=== PATIENT | female | born 1960 | race Caucasian/White ===

== ENCOUNTER 2017-07-31 08:58 | Day surgery (SDC) | payer OTHER, SELFPAY ==
[2017-07-31] VITALS (7 sets, daily range): BP systolic 100–138; BP diastolic 63–91; PULSE 65–92; RESP 14–18; TEMP 36.1–36.7; O2SAT 96–98; BMI 32.1
--- NOTE | 2017-07-31 | PATH_ITS ---
[facility] Accession Number: [id number] . 01 Material submitted: . PART A: POLYP AT MID-ASCENDING COLON PART B: COLON POLYP AT 15 CM . 02 Diagnosis: A. Biopsy Polyp Mid Ascending Colon: Tubular adenoma. . B. Biopsy Colon Polyp at 15 cm: Polypoid tubular adenoma, apparently excised in the plane of section. MRV/08/01/2017 . 02 Electronically signed: . Stanislaw Hameed MD, Pathologist NPI- [id number] . 01 Gross description: . Received are two formalin-filled containers, both labeled with the patient's name: . A. In a container labeled polyp at mid ascending colon, the specimen consists of a 0.3 cm portion of tissue, entirely submitted in cassette A. B. In a container labeled colon polyp at 15 cm, the specimen consists of a 0.6 cm portion of tissue, which is bisected and totally submitted in cassette B. ([id number]) /FRR . 02 Pathologist provided ICD-10: D12.2 . 02 CPT . 453054, [id number] Performed at: 01 [facility] [address] [id number] MD Jono Ball MD Phone: [phone] Performed at: 02 [facility] [address] [place], [place] [id number] MD Zach Bell MD Phone: [phone]
[2017-07-31] MEDS: SODIUM CHLORIDE 0.9% 1,000 ML 100 ML IV (09:30)
--- NOTE | 2017-07-31 11:32 | PM.HP.1 ---
History of Present Illness Chief complaint: [id number] Narrative: Haily Kimball is a 57 year old female who presents today for screening colonoscopy. She denies any problems or symptoms related to the function of her GI tract. She denies any family history of colon cancer or polyps. She reports that she needs a colonoscopy as part of a health maintenance program. [facility] Surgical History History of bilateral salpingo-oophorectomy (BSO) Status post appendectomy Status post hernia repair Status post tubal ligation Family History Father CT (myocardial infarction), Onset Age: 60 Grandmother Stroke, Onset Age: 80 Mother Alzheimer's dementia, late onset, Onset Age: 72 Depression Sister Age: 67 Chronic mental illness Depression Social History household members: spouse Smoking Status: Former smoker Meds Home Medications Medication Instructions Recorded Confirmed Type Fish Oil (Fish Oil 500 MG Softgel) 1,000 mg PO BID #0 04/10/12 07/31/17 History ASPIRIN (Aspir-Low) 81 mg PO QDAY #0 10/03/12 07/31/17 History [PROBIOTICS] 1 dose PO BID #0 10/03/12 07/31/17 History levothyroxine [Synthroid] 100 mcg PO QAM 07/31/17 07/31/17 History Allergies Allergy/AdvReac Type Severity Reaction Status Date / Time SULFA (sulfonamide) Allergy Mild RASH Uncoded 07/17/17 14:13 Review of Systems Review of Systems All systems reviewed & are unremarkable except as noted in HPI and below Exam Vital Signs (past 8 hours): Vital Signs - 8 hr 07/31/17 09:42 Temperature 97.4 F L Pulse Rate 92 H Respiratory Rate 16 Blood Pressure 138/91 H Pulse Oximetry 96 Pulse Oximetry 96 Oxygen Delivery Method Room Air Narrative Exam Narrative: A very pleasant lady in no distress HEENT: Normocephalic and atraumatic, pupils equal round reactive to light accommodation with anicteric sclera Lungs: Clear bilaterally Heart: Regular rate and rhythm without murmur Abdomen: Soft, nontender, active bowel sounds Extremities: Warm and well perfused without edema Assessment & Plan Plan: Plan: Very pleasant and generally healthy 57-year-old lady who presents today for a screening colonoscopy. We discussed risks and benefits of the procedure and the patient expressed a desire to continue
[2017-07-31] MEDS: fentaNYL 250 MCG/5 ML INJ 350 MCG IV (12:08)
--- NOTE | 2017-07-31 12:08 | PM.OP.1 ---
Operative Date/Time/Diagnoses - Date of procedure: 07/31/17 Time of procedure: 12:08 Pre-op diagnosis: Screening colonoscopy Post-op diagnosis: same Procedure & Clinicians Procedure: Colonoscopy to the cecum with polypectomy x2 Same procedure as scheduled: Yes Indications: No prior colonoscopy Surgeon: Lynda Gotti Anesthesia Type: Sedation (Versed 15 mg; fentanyl 350 mcg) Operative Notes Findings: 1. Excellent prep 2. One 3 mm polyp in the mid ascending colon 3. One 1 cm pedunculated polyp at 15 cm from the anal verge 4. A single large perianal skin tag-approximately 2 cm-without evidence of hemorrhage 5. Left lower quadrant adhesions 6. Mild diverticulosis limited to the sigmoid region Closure Type: not applicable Specimen(s): other Implants & Drains: 1. Polyp at the mid ascending colon removed with cold forceps 2. Polyp at 15 cm removed with snare cautery Estimated Blood Loss (mL): 1 Procedure in detail: After obtaining informed consent, the patient was brought to the GI suite and placed in the left lateral decubitus position on the examination table. After placement of appropriate monitors, the patient was given incremental doses of Versed and Fentanyl until an appropriate level of sedation was achieved. A time out was held per SCOAP protocol. A digital rectal examination was performed and did not reveal any masses or obstructing lesions. The colonoscope was gently passed into the patient's anus and the entire colon navigated to the level of the cecum with moderate difficulty due to tight left lower quadrant adhesions and patient discomfort. Once in the cecum, the scope was withdrawn being sure to go before and beyond all mucosal folds and prominences and get an excellent examination. In the mid ascending colon, we noted a 2-3 m sessile polyp. This was removed with cold forceps and retained for pathology. We continued our examination and at 15 cm encountered a 1 to 1-1/2 cm pedunculated polyp. This was removed completely with snare and cautery and retained for pathology. Other findings are noted above. At the level of the rectal vault, the scope was retroflexed and the internal anal canal was examined. The scope was straightened and air aspirated from the colon. The instrument was removed from the patient's body and the procedure was concluded. Total sedation time 28 min Total withdrawal time 16 min The patient was allowed to awaken from sedation without difficulty and taken to the post-anesthesia care unit in good condition. Complications: none Condition: stable Disposition: PACU Plan for aftercare: 1. Discharge to home 2. We will contact you with pathology results 3. Plan for next colonoscopy in 3 years due to the large size of the distal polyp
[2017-07-31] MEDS: MIDAZOLAM 5 MG/5 ML VIAL 15 MG IV (12:09)
--- NOTE | 2017-07-31 12:55 | SUR.PHASEII ---
Call light within reach. Pt drowsy, juice provided.
== END 2017-07-31 14:37 | disposition home or self-care (01) ==
PROVIDERS: Family Provider Family Medicine; PCP Family Medicine; Visit Provider Surgery
PROC: 0DJD8ZZ Inspection of Lower Intestinal Tract, Via Natural or Artificial Opening Endoscopic (ICD-10-PCS; CPT 45378; principal; 2017-07-31 09:45)
DX: Z12.11 Encounter for screening for malignant neoplasm of colon (principal); K64.4 Residual hemorrhoidal skin tags; K57.30 Diverticulosis of large intestine without perforation or abscess without bleeding; K66.0 Peritoneal adhesions (postprocedural) (postinfection); D12.2 Benign neoplasm of ascending colon; D12.5 Benign neoplasm of sigmoid colon; Z87.891 Personal history of nicotine dependence
CPT/HCPCS: 45385; 45380; 99152; 99153; J2250; J3010

== ENCOUNTER → 2018-01-26 13:30 | Outpatient (CLI) | payer OTHER, SELFPAY ==
--- NOTE | 2018-01-26 13:33 | DI.RAD.S_ITS ---
PROCEDURE: XR KNEE LT 3V INDICATIONS: knee pain TECHNIQUE: 3 views of the knee were acquired. COMPARISON: [facility], , KNEE 1 VIEW BILATERAL, 10/05/2015, 16:42. FINDINGS: Bones: No fractures or dislocations. No suspicious bony lesions. Mild degenerative joint disease with joint space narrowing and small osteophyte. Soft tissues: Trace joint effusion. No suspicious soft tissue calcifications. IMPRESSION: 1. No fracture or dislocation. 2. Mild degenerative joint disease. 3. Trace knee joint effusion. Dictated by: Pierce Weiss M.D. on 01/26/2018 at 15:15 Approved by: Pierce Weiss M.D. on 01/26/2018 at 15:16
== END ==
PROVIDERS: PCP Family Medicine; Visit Provider Internal Medicine
DX: M25.562 Pain in left knee (principal); M17.12 Unilateral primary osteoarthritis, left knee
CPT/HCPCS: 73562

== ENCOUNTER → 2018-02-15 10:44 | Outpatient (CLI) | payer OTHER, SELFPAY ==
--- NOTE | 2018-02-15 | DI.MG.S_ITS ---
BILATERAL DIGITAL SCREENING MAMMOGRAM 3D/2D WITH CAD: 02/15/2018 CLINICAL: Routine screening. Comparison is made to exams dated: 01/21/2016 mammogram, 02/20/2014 mammogram, and 04/27/2011 mammogram - [facility]. The tissue of both breasts is heterogeneously dense. This may lower the sensitivity of mammography. Current study was also evaluated with a Computer Aided Detection (CAD) system. There is a mole marker on the right breast. No significant masses, calcifications, or other findings are seen in either breast. There has been no significant interval change. IMPRESSION: NEGATIVE There is no mammographic evidence of malignancy. A 1 year screening mammogram is recommended. This exam was interpreted at Station ID: [id number]. NOTE: For mammograms, a report in lay terms will be sent to the patient. Approximately 15% of breast malignancies will not be visualized mammographically. In the management of a palpable breast mass, a negative mammogram must not discourage biopsy of a clinically suspicious lesion. Electronically Signed By: Ravi bishop/ayush:02/15/2018 21:31:31 letter sent: Normal Exam ACR BI-RADS Category 1: Negative [id number]
[2018-02-15 13:51] LABS: Thyroid Stimulating Hormone 2.77 uIU/mL (0.47-4.68)
== END ==
PROVIDERS: PCP Family Medicine; Visit Provider Family Medicine
DX: Z12.31 Encounter for screening mammogram for malignant neoplasm of breast (principal); E03.9 Hypothyroidism, unspecified
CPT/HCPCS: 36415; 77063; 77067; 84443

== ENCOUNTER → 2019-01-19 10:52 | Outpatient (CLI) | payer OTHER, SELFPAY ==
[2019-01-19 11:48] LABS: Cholesterol 265 mg/dL (140-199); Glucose 96 mg/dL (70-100); HDL Cholesterol 55 mg/dL (40-60); LDL Cholesterol Calculated 171 mg/dL (<100); Triglycerides 193 mg/dL (35-150)
[2019-01-19 12:18] LABS: Thyroid Stimulating Hormone 2.03 uIU/mL (0.47-4.68)
== END ==
PROVIDERS: PCP Family Medicine; Visit Provider Family Medicine
DX: E03.9 Hypothyroidism, unspecified (principal); E78.5 Hyperlipidemia, unspecified
CPT/HCPCS: 36415; 80061; 82947; 84443

== ENCOUNTER → 2019-02-15 14:41 | Outpatient (CLI) | payer OTHER, SELFPAY ==
[2019-02-15 15:58] LABS: Cancer Antigen 125 < 6 U/mL (0-35)
[2019-02-19 15:50] LABS: Human HE4 Antigen 25 pmol/L
== END ==
PROVIDERS: PCP Family Medicine; Visit Provider Obstetrics & Gynecology
DX: N83.202 Unspecified ovarian cyst, left side (principal); R10.2 Pelvic and perineal pain; Z80.41 Family history of malignant neoplasm of ovary; Z01.84 Encounter for antibody response examination
CPT/HCPCS: 36415; 86304; 86305

== ENCOUNTER 2019-05-24 22:14 | Emergency (ER) | payer OTHER, SELFPAY ==
[2019-05-24 22:21] VITALS: BP 159/96; PULSE 84; RESP 20; TEMP 36.8; O2SAT 97
--- NOTE | 2019-05-24 22:29 | DI.RAD.S_ITS ---
PROCEDURE: XR CHEST 1V INDICATIONS: URI EVAL for PNA TECHNIQUE: One view of the chest was acquired. COMPARISON: None. FINDINGS: Surgical changes and devices: None. Lungs and pleura: Subtle strandy density in the right infrahilar region. No dense consolidation. No pleural effusions or pneumothorax. Mediastinum: Mediastinal contours appear normal. Heart size is normal. Bones and chest wall: No suspicious bony lesions. Overlying soft tissues appear unremarkable. IMPRESSION: 1. Strand-like density in the right infrahilar region may be peribronchial thickening versus early interstitial pneumonia. 2. No consolidative changes or effusion. Dictated by: Екатерина Newberry M.D. on 05/25/2019 at 8:38 Approved by: Екатерина Newberry M.D. on 05/25/2019 at 8:39
--- NOTE | 2019-05-24 22:30 | ED.GENADULT ---
HPI - General Adult General Chief complaint: Upper Respiratory Symptoms Stated complaint: FLU SOB DIZZY Time Seen by Provider: 05/24/19 22:29 Source: patient Mode of arrival: Ambulatory Limitations: no limitations History of Present Illness HPI narrative: 58-year-old female here for evaluation of fatigue, nonproductive cough, fevers, body aches for the past week. Patient states that she has had ?the flu? although has never been tested for it. Patient states his her has had the same symptoms and he has not been tested for the flu. She was concerned about COVID-19 given her symptoms and the current situation. Related Data Home Medications Medication Instructions Recorded Confirmed Fish Oil (Fish Oil 500 MG Softgel) 1,000 mg PO BID #0 04/10/12 01/30/19 [PROBIOTICS] 1 dose PO BID #0 10/03/12 01/30/19 vitamin B complex 1 tab PO DAILY 10/06/17 01/30/19 niacin 100 mg tablet 250 mg PO DAILY tab 01/28/19 01/30/19 Previous Rx's Medication Instructions Recorded estradiol 1 mg tablet See Rx Instructions .ROUTE 01/28/19 .COMPLEX #90 tab levothyroxine 100 mcg tablet 100 mcg PO QAM #90 tab 01/28/19 progesterone micronized 200 mg See Rx Instructions .ROUTE 01/28/19 capsule .COMPLEX #90 cap Allergies Allergy/AdvReac Type Severity Reaction Status Date / Time Sulfa (Sulfonamide Allergy Intermediate Rash Verified 01/30/19 11:17 Antibiotics) Review of Systems Constitutional Constitutional: Reports body ache(s), Reports chills, Reports fatigue, Reports fever(s) and Reports malaise Cardiovascular Cardiovascular: Denies chest pain and Reports dyspnea Respiratory Respiratory: Reports cough and Reports dyspnea Gastrointestinal Gastrointestinal: Denies abdominal pain, Denies nausea and Denies vomiting Genitourinary Genitourinary: Denies dysuria Musculoskeletal Musculoskeletal: Denies myalgias and Denies arthralgias Integumentary/Breasts Skin/Breast: Denies lesions and Denies rash Neurologic Neurologic: Denies behavioral changes Psychiatric Psychiatric: Denies behavioral changes Endocrine Endocrine: Reports fatigue Hematologic/Lymphatic Hematologic/Lymphatic: Denies easy bleeding and Denies easy bruising Patient History Medical History ADHD (attention deficit hyperactivity disorder) (Chronic) Carpal tunnel syndrome (Resolved 1995) Hayfever (Chronic 2014) Hemorrhoids (Chronic ~1989) Perimenopausal (Chronic) Plantar warts (Resolved ~2005) Social History marital status: number of children: 2 household members: spouse and family lives independently: Yes caregiver/support person: No housing: house Smoking Status: Former smoker second hand exposure: No alcohol intake: current substance use type: does not use Smoking Status: Former smoker alcohol intake frequency: a few times a month Substance Use Type: does not use Exam Initial Vital Signs Initial Vital Signs: Vital Signs Temperature 98.3 F 05/24/19 22:21 Pulse Rate 84 05/24/19 22:21 Respiratory Rate 20 05/24/19 22:21 Blood Pressure 159/96 H 05/24/19 22:21 Pulse Oximetry 97 05/24/19 22:21 Const General: cooperative, comfortable and well developed Limitations: mental status not altered HENMT Head: normal to inspection and normocephalic Resp Effort & Inspection: normal respiratory effort Auscultation: clear to auscultation bilaterally Cardio Rate: regular rate Rhythm: regular rhythm GI Inspection: non-distended Palpation: soft and No firm Skin Lesions: no lesions Rashes: no rashes Neuro General: alert, awake and oriented x3 Cognition: normal cognition Speech: speech normal Extrem General: normal to inspection and capillary refill normal Psych Appearance: grossly normal and well kempt Scores GCS Chapo coma scale eye opening: Spontaneous [place] coma scale verbal response: Orientated Chapo coma scale motor response: Obey commands Chapo coma scale total score: 15 Course Orders Ordered: ED Orders 05/24/19 22:29 XR chest 1V Stat 05/24/19 22:40 Respiratory Panel (Film Array) Stat Vital Signs Vital signs: Vital Signs - 8 hr 05/24/19 22:21 05/25/19 00:22 Temperature 98.3 F Pulse Rate 84 70 Respiratory Rate 20 20 Blood Pressure 159/96 H Blood Pressure [Left Arm] 107/70 Pulse Oximetry 97 95 Medical Decision Making Lab Data Lab results reviewed: Yes I reviewed the patient's lab results. Labs: Lab Results 05/24/19 Range/Units 22:40 Chlamy pneumoniae PCR Not detected (Not Detect) Adenovirus (PCR) Not detected (Not Detect) B.parapertussis DNA PCR Not detected (Not Detect) Coronavirus OC43 (PCR) Not detected (Not Detect) Coronavirus HKU1 (PCR) Not detected (Not Detect) Coronavirus 229E (PCR) Not detected (Not Detect) Coronavirus NL63 (PCR) Not detected (Not Detect) Human Metapneumovir PCR Not detected (Not Detect) Influenza Type A (PCR) Detected H (Not Detect) Influenza Type B (PCR) Not detected (Not Detect) M. pneumoniae (PCR) Not detected (Not Detect) Parainfluenza 1 (PCR) Not detected (Not Detect) Parainfluenza 2 (PCR) Not detected (Not Detect) Parainfluenza 3 (PCR) Not detected (Not Detect) Parainfluenza 4 (PCR) Not detected (Not Detect) RSV (PCR) Not detected (Not Detect) Entero/Rhino (PCR) Not detected (Not Detect) Imaging Data Chest x-ray: Radiologist's Impression: An acute inflammatory process, likely infectious, is present in right infrahilar region and right lung base. MDM Narrative Medical decision making narrative: Patient is nontoxic appearing. Does not hypoxic, not febrile, not tachypneic, is a clear lung exam. Chest x-ray does show findings somewhat concerning for who infectious process on the right lung base. She is flu A positive. Occurs some concern given the fact that she has flu a and also the findings in the right lung base this could be a flu pneumonia. She has had symptoms for approximately 1 week. No indication for Tamiflu. She is nontoxic. No indication for admission to the hospital. I feel that given the fact that she is flu positive that will hold on further testing for COVID-19. No indication for antibiotics. She was instructed to contact her primary provider for follow-up. She was given strict return precautions. She expressed understanding and agreement plan. Discharge Plan Departure Patient Disposition: Home Clinical Impression: Influenza A Discharge Date/Time: 05/25/19 00:31 Instructions: DI for Influenza -- Adult Activity Restrictions/Additional Instructions: Continue with the Tylenol and/or ibuprofen for any fevers or body aches. Patient increase your fluid intake. If your symptoms are not improving over the next 2-3 days or if they are worsening please contact your primary provider for follow-up. Prescriptions: No Action Fish Oil (Fish Oil 500 MG Softgel) 1,000 mg PO BID Qty: 0 RF: 0 [PROBIOTICS] capsule 1 dose PO BID Qty: 0 RF: 0 levothyroxine [Synthroid] 100 mcg tablet 100 mcg PO QAM Qty: 90 RF: 3 estradiol 1 mg tablet See Rx Instructions .ROUTE .COMPLEX Qty: 90 RF: 3 progesterone micronized 200 mg capsule See Rx Instructions .ROUTE .COMPLEX Qty: 90 RF: 3 vitamin B complex [B Complex-Vitamin B12] tablet 1 tab PO DAILY RF: 0 niacin 100 mg tablet 250 mg PO DAILY RF: 0 Referrals: Janneth Maciel MD [Primary Care Provider] -
[2019-05-25 00:06] LABS: Adenovirus Not Detected (Not Detect); Bordetella pertussis Not Detected (Not Detect); Chlamydophila pneumoniae Not Detected (Not Detect); Coronavirus 229E Not Detected (Not Detect); Coronavirus HKU1 Not Detected (Not Detect); Coronavirus NL 63 Not Detected (Not Detect); Coronavirus OC43 Not Detected (Not Detect); Human Metapneumovirus Not Detected (Not Detect); Human Rhinovirus/Enterovirus Not Detected (Not Detect); Influenza A Detected (Not Detect); Influenza B Not Detected (Not Detect); Mycoplasma pneumoniae Not Detected (Not Detect); Parainfluenza Virus 1 Not Detected (Not Detect); Parainfluenza Virus 2 Not Detected (Not Detect); Parainfluenza Virus 3 Not Detected (Not Detect); Parainfluenza Virus 4 Not Detected (Not Detect); Respiratory Syncytial Virus Not Detected (Not Detect)
[2019-05-25 00:22] VITALS: BP 107/70; PULSE 70; RESP 20; O2SAT 95
== END 2019-05-25 00:31 | disposition home or self-care (01) ==
PROVIDERS: Emergency Provider Emergency Medicine; PCP Family Medicine
DX: J10.1 Influenza due to other identified influenza virus with other respiratory manifestations (principal)
CPT/HCPCS: 71045; 87633; 99281; 99283

== ENCOUNTER → 2020-02-18 09:05 | Outpatient (CLI) | payer OTHER, SELFPAY ==
[2020-02-18 12:46] LABS: Cholesterol 259 mg/dL (140-199); HDL Cholesterol 79 mg/dL (40-60); LDL Cholesterol Calculated 147 mg/dL (<100); Triglycerides 167 mg/dL (35-150)
[2020-02-18 13:13] LABS: Thyroid Stimulating Hormone 3.23 uIU/mL (0.47-4.68)
== END ==
PROVIDERS: PCP Family Medicine; Referring Provider Family Medicine; Visit Provider Family Medicine
DX: E03.9 Hypothyroidism, unspecified (principal); E78.5 Hyperlipidemia, unspecified
CPT/HCPCS: 36415; 80061; 84443

== ENCOUNTER → 2020-09-10 11:17 | Outpatient (CLI) | payer OTHER, SELFPAY ==
--- NOTE | 2020-09-10 | DI.MG.S_ITS ---
BILATERAL DIGITAL SCREENING MAMMOGRAM 3D/2D WITH CAD: 09/10/2020 CLINICAL: Routine screening. Comparison is made to exams dated: 02/15/2018 mammogram, 01/21/2016 mammogram, and 02/20/2014 mammogram - [facility]. The tissue of both breasts is heterogeneously dense. This may lower the sensitivity of mammography. Current study was also evaluated with a Computer Aided Detection (CAD) system. There is a mole marker on the right breast. No significant masses, calcifications, or other findings are seen in either breast. There has been no significant interval change. IMPRESSION: NEGATIVE There is no mammographic evidence of malignancy. A 1 year screening mammogram is recommended. This exam was interpreted at Station ID: [id number]. NOTE: For mammograms, a report in lay terms will be sent to the patient. Approximately 15% of breast malignancies will not be visualized mammographically. In the management of a palpable breast mass, a negative mammogram must not discourage biopsy of a clinically suspicious lesion. Electronically Signed By: Corbin Shaikh M.D., jr/ayush:09/10/2020 13:47:18 letter sent: Normal Exam ACR BI-RADS Category 1: Negative 3341F
== END ==
PROVIDERS: PCP Family Medicine; Referring Provider Family Medicine; Visit Provider Family Medicine
DX: Z12.31 Encounter for screening mammogram for malignant neoplasm of breast (principal)
CPT/HCPCS: 77063; 77067

== ENCOUNTER → 2021-08-16 09:15 | Outpatient (CLI) | payer OTHER, SELFPAY ==
[2021-08-16 10:30] LABS: Add Manual Diff / Slide Review NO; Basophils Absolute Auto 0 /uL (0-100); Basophils Percent Auto 0.8 % (0-2); Eosinophils Absolute Auto 200 /uL (0-450); Eosinophils Percent Auto 4.3 % (2-4); Hematocrit 39.2 % (36-46); Hemoglobin 13.3 g/dL (12.0-16.0); Lymphocytes Absolute Auto 1600 /uL (1100-4500); Lymphocytes Percent Auto 29.5 % (25-40); Mean Corpuscular Hemoglobin 30.1 PG (26-34); Mean Corpuscular Volume 88.4 fL (80-100); Monocytes Absolute Auto 300 /uL (0-900); Monocytes Percent Auto 6.2 % (3-14); Neutrophils Absolute Auto 3200 /uL (1500-7000); Neutrophils Percent Auto 59.2 % (50-75); Platelet Count 227 X10^3/uL (150-400); Red Blood Cell Count 4.43 X10^6/uL (4.0-5.2); Red Cell Distribution Width 13.4 % (11.6-14.8); White Blood Cell Count 5.4 X10^3/uL (4.5-11.0)
[2021-08-16 10:36] LABS: Creatinine Urine Random 142.2 mg/dL
[2021-08-16 10:58] LABS: Alanine Aminotransferase 24 IU/L (<35); Albumin 4.3 g/dL (3.5-5.0); Albumin Globulin Ratio 1.4 (1.0-2.8); Alkaline Phosphatase 43 U/L (38-126); Aspartate Aminotransferase 31 IU/L (14-36); BUN Creatinine Ratio 15.3 (6-22); Blood Urea Nitrogen 11 mg/dL (7-17); Calcium 9.2 mg/dL (8.4-10.2); Carbon Dioxide 25 mmol/L (22-32); Chloride 105 mmol/L (98-107); Cholesterol 262 mg/dL (140-199); Estimated Glomerular Filt Rate > 60 mL/min (>60); Globulin 3.1 g/dL (1.7-4.1); Glucose 97 mg/dL (80-110); HDL Cholesterol 66 mg/dL (40-60); HEMOLYSIS < 15 (0-50); LDL Cholesterol Calculated 159 mg/dL (<100); Sodium 137 mmol/L (137-145); Total Protein 7.4 g/dL (6.3-8.2); Triglycerides 187 mg/dL (35-150)
[2021-08-16 11:25] LABS: Thyroid Stimulating Hormone 1.89 uIU/mL (0.47-4.68)
== END ==
PROVIDERS: PCP Family Medicine; Referring Provider Family Medicine; Visit Provider Family Medicine
DX: I10 Essential (primary) hypertension (principal); E03.9 Hypothyroidism, unspecified
CPT/HCPCS: 36415; 80053; 80061; 82043; 82570; 84443; 85025

== ENCOUNTER → 2022-01-27 13:34 | Outpatient (CLI) | payer OTHER, SELFPAY ==
[2022-01-27 14:44] LABS: Influenza A - CEPHEID Flu A NEGATIVE (NEGATIVE); Influenza B - CEPHEID Flu B NEGATIVE (NEGATIVE); Respiratory Syncytial Virus Negative (Negative)
[2022-01-27 14:47] LABS: COVID-19 CEPHEID 4-PLEX PCR Negative (Negative)
== END ==
PROVIDERS: PCP Family Medicine; Visit Provider Nurse Practitioner Family
DX: J02.9 Acute pharyngitis, unspecified (principal); R05.9 Cough, unspecified
CPT/HCPCS: 0241U; 87070

== ENCOUNTER → 2022-01-28 11:00 | Outpatient (CLI) | payer OTHER, SELFPAY ==
--- NOTE | 2022-01-28 | DI.MG.S_ITS ---
BILATERAL DIGITAL SCREENING MAMMOGRAM 3D/2D WITH CAD: 01/28/2022 CLINICAL: Routine screening. Comparison is made to exams dated: 09/10/2020 mammogram, 02/15/2018 mammogram, and 01/21/2016 mammogram - [facility]. Both breasts are extremely dense, which lowers the sensitivity of mammography (category d />75% glandular tissue). Current study was also evaluated with a Computer Aided Detection (CAD) system. There is a mole marker on the right breast. No significant masses, calcifications, or other findings are seen in either breast. There has been no significant interval change. IMPRESSION: NEGATIVE There is no mammographic evidence of malignancy. A 1 year screening mammogram is recommended. Based on Tyrer-Cuzick model (a risk assessment model), the patient's lifetime risk is 26.0% and her 10 year risk is 15.1%. If a patient has an elevated risk, a more comprehensive evaluation should be considered and/or a referral to a genetic counselor. The [place] [employer], [employer], and NCCN Guidelines advise the consideration of Breast MRI as an adjunct to screening mammography in patients whose Lifetime risk to develop breast cancer is 20% or higher. This exam was interpreted at Station ID: [id number]. NOTE: For mammograms, a report in lay terms will be sent to the patient. Approximately 15% of breast malignancies will not be visualized mammographically. In the management of a palpable breast mass, a negative mammogram must not discourage biopsy of a clinically suspicious lesion. Electronically Signed By: Hussain buck/ayush:01/28/2022 11:55:26 letter sent: Normal Exam ACR BI-RADS Category 1: Negative 3341F
== END ==
PROVIDERS: PCP Family Medicine; Referring Provider Family Medicine; Visit Provider Family Medicine
DX: Z12.31 Encounter for screening mammogram for malignant neoplasm of breast (principal)
CPT/HCPCS: 77063; 77067

== ENCOUNTER → 2022-03-28 10:47 | Outpatient (CLI) | payer OTHER, SELFPAY ==
[2022-03-28 14:15] LABS: COVID19 -Nasal RAPID Negative (Negative)
== END ==
PROVIDERS: PCP Family Medicine; Visit Provider Surgery
DX: Z20.822 Contact with and (suspected) exposure to COVID-19 (principal); Z01.812 Encounter for preprocedural laboratory examination
CPT/HCPCS: 87635; C9803

== ENCOUNTER 2022-03-29 08:40 | Day surgery (SDC) | payer OTHER, SELFPAY ==
[2022-03-29 09:07] VITALS: BP 141/88; PULSE 72; RESP 14; TEMP 36.3; O2SAT 99; BMI 28.1
[2022-03-29] MEDS: LACTATED RINGERS 1,000 ML 200 ML IV (09:17)
--- NOTE | 2022-03-29 10:15 | PM.HP.1 ---
History of Present Illness History of Present Illness Date Patient Seen: 03/29/22 Time Patient Seen: 10:15 Chief complaint: Colonoscopy Narrative: The patient presents for colorectal screening. They have never had any previous examination for such. No personal or family history of colon cancer. On further history denies any recent gastrointestinal symptoms. She has chronic mild abdominal pain, no unexplained weight loss, change in bowel habits, or blood per rectum. Patient History Medical History (Updated 02/22/22 @ 11:57 by Magda Burgos PA-C) ADHD (attention deficit hyperactivity disorder) Carpal tunnel syndrome (1995) Hayfever (2013) Hemorrhoids (~1989) Perimenopausal Plantar warts (~2005) Surgical History Anesthesia (10/1999) Cyst of fallopian tube (10/1999) History of right salpingo-oophorectomy (2009) Status post appendectomy (1970) Status post hernia repair (1980) Status post tubal ligation (2009) Family & Social History Family History Father [place] (myocardial infarction) Liver problem Grandmother Stroke Mother Alzheimer's dementia, late onset Depression Sister Age: 72 Chronic mental illness Depression Smoker Brother MVA (motor vehicle accident) Grandfather Lung cancer Grandfather No problems noted. Grandmother No problems noted. Family/Other Hypothyroidism Family/Other Lymphoma Social History: household members none lives independently Yes caregiver/support person No Tobacco & Substance use: Smoking Status Former smoker alcohol intake current alcohol intake frequency 0-2 drinks per day Substance Use Type does not use Meds Home Medications and Allergies Home Medications Medication Instructions Recorded Confirmed Type Fish Oil (Fish Oil 500 MG Softgel) 1,000 mg PO BID ##0 04/10/12 03/29/22 History [PROBIOTICS] 1 dose PO BID ##0 10/03/12 02/22/22 History vitamin B complex (B 1 tab PO DAILY 10/06/17 02/22/22 History Complex-Vitamin B12 tablet) niacin 100 mg tablet 250 mg PO DAILY 01/28/19 03/29/22 History estradiol 1 mg tablet See Rx Instructions .Route 07/12/21 03/29/22 Rx .COMPLEX #90 tabs levothyroxine 100 mcg tablet See Rx Instructions .Route 07/12/21 03/29/22 Rx .COMPLEX #90 tabs progesterone micronized 200 mg See Rx Instructions .Route 07/12/21 03/29/22 Rx capsule .COMPLEX #90 caps escitalopram oxalate 10 mg tablet 10 mg PO DAILY #30 tabs 02/22/22 03/29/22 Rx Allergies Allergy/AdvReac Type Severity Reaction Status Date / Time Sulfa (Sulfonamide Allergy Intermediate Rash Verified 03/29/22 09:03 Antibiotics) Exam Vital Signs (past 8 hours): - 03/29/22 09:07 Temperature 97.4 F L Pulse Rate 72 Respiratory Rate 14 Blood Pressure 141/88 H Pulse Oximetry 99 Oxygen Delivery Method Room Air Oxygen Delivery Method Room Air Narrative Exam Narrative: General adult woman alert oriented no acute distress Abdomen soft nontender nondistended Assessment & Plan Assessment & Plan narrative: The patient requires colorectal screening and colonoscopy is recommended. Technical details were discussed. Risks, benefits, alternatives explained. Risks including but not limited to myocardial infarction, aspiration, bleeding, pain, missed lesion, incomplete examination, need for further radiographic studies, colonic perforation, and need for major abdominal surgery were discussed. All questions were answered to their satisfaction, and they are in agreement with this plan. Time Spent With Patient Critical Care time: I spent a total of [] minutes of critical care time on this patient's care today; this time is exclusive of procedural time.
--- NOTE | 2022-03-29 10:22 | P.HP_ITS ---
History of Present Illness History of Present Illness Date Patient Seen: 03/29/22 Time Patient Seen: 10:22 Chief complaint: Colonoscopy Narrative: The patient presents for colorectal screening. Colonoscopy 4 years ago demonstrated benign polyps. No personal or family history of colon cancer. On further history denies any recent gastrointestinal symptoms. No nausea, vomiting, abdominal pain, loss of appetite, unexplained weight loss, change in bowel habits, or blood per rectum. Patient History Medical History (Updated 03/29/22 @ 10:23 by Eliseo Leblanc MD) ADHD (attention deficit hyperactivity disorder) Carpal tunnel syndrome (1995) Hayfever (2013) Hemorrhoids (~1989) Perimenopausal Plantar warts (~2005) Surgical History Anesthesia (10/1999) Cyst of fallopian tube (10/1999) History of right salpingo-oophorectomy (2009) Status post appendectomy (1970) Status post hernia repair (1980) Status post tubal ligation (2009) Family & Social History Family History Father CT (myocardial infarction) Liver problem Grandmother Stroke Mother Alzheimer's dementia, late onset Depression Sister Age: 72 Chronic mental illness Depression Smoker Brother MVA (motor vehicle accident) Grandfather Lung cancer Grandfather No problems noted. Grandmother No problems noted. Family/Other Hypothyroidism Family/Other Lymphoma Social History: household members none lives independently Yes caregiver/support person No Tobacco & Substance use: Smoking Status Former smoker alcohol intake current alcohol intake frequency 0-2 drinks per day Substance Use Type does not use Meds Home Medications and Allergies Home Medications Medication Instructions Recorded Confirmed Type Fish Oil (Fish Oil 500 MG Softgel) 1,000 mg PO BID ##0 04/10/12 03/29/22 History [PROBIOTICS] 1 dose PO BID ##0 10/03/12 02/22/22 History vitamin B complex (B 1 tab PO DAILY 10/06/17 02/22/22 History Complex-Vitamin B12 tablet) niacin 100 mg tablet 250 mg PO DAILY 01/28/19 03/29/22 History estradiol 1 mg tablet See Rx Instructions .Route 07/12/21 03/29/22 Rx .COMPLEX #90 tabs levothyroxine 100 mcg tablet See Rx Instructions .Route 07/12/21 03/29/22 Rx .COMPLEX #90 tabs progesterone micronized 200 mg See Rx Instructions .Route 07/12/21 03/29/22 Rx capsule .COMPLEX #90 caps escitalopram oxalate 10 mg tablet 10 mg PO DAILY #30 tabs 02/22/22 03/29/22 Rx Allergies Allergy/AdvReac Type Severity Reaction Status Date / Time Sulfa (Sulfonamide Allergy Intermediate Rash Verified 03/29/22 09:03 Antibiotics) Exam Vital Signs (past 8 hours): - 03/29/22 09:07 Temperature 97.4 F L Pulse Rate 72 Respiratory Rate 14 Blood Pressure 141/88 H Pulse Oximetry 99 Oxygen Delivery Method Room Air Oxygen Delivery Method Room Air Narrative Exam Narrative: General adult woman alert oriented no acute distress Abdomen soft nontender nondistended Assessment & Plan Assessment and plan (1) Personal history of colonic polyps: Status: Acute Assessment & Plan narrative: The patient requires colorectal screening and colonoscopy is recommended. Technical details were discussed. Risks, benefits, alternatives explained. Risks including but not limited to myocardial infarction, aspiration, bleeding, pain, missed lesion, incomplete examination, need for further radiographic studies, colonic perforation, and need for major abdominal surgery were discussed. All questions were answered to their satisfaction, and they are in agreement with this plan. Time Spent With Patient Critical Care time: I spent a total of [] minutes of critical care time on this patient's care toda y; this time is exclusive of procedural time.
--- NOTE | 2022-03-29 10:26 | PM.OP.COLON ---
Operative Date/Time/Diagnoses Date of procedure: 03/29/22 Time of procedure: 10:26 Pre-op diagnosis: Personal history of colonic polyps Post-op diagnosis: same Procedure & Clinicians Study performed: Colonoscopy Same procedure as scheduled: Yes Indications: Personal history of colonic polyps Surgeon: Eliseo Leblanc Procedure Notes Procedure in detail: The history and physical was performed/updated and the patient is ASA class is 2. The procedure was discussed in detail with the patient. Potential risks complications including infection, bleeding, missed diagnosis, perforation, need for surgery, and were explained. Their questions were answered and informed consent was obtained. Patient was brought to the procedure room and placed standard monitoring equipment. The patient's vital signs were monitored continuously throughout the entire procedure. Prior to starting time-out was performed. The patient was placed in the left lateral recumbent position. Procedural sedation was administered by anesthesia. Examination began with a thorough inspection of the perianal area there was no evidence of fissures, fistulae, external hemorrhoids or cutaneous malignancy. The colonoscopy scope was then placed into the anal canal and was advanced to the cecum, which was identified by the ileocecal valve, the appendiceal orifice and the confluence of the taenia. The scope was then slowly withdrawn examining colon thoroughly in all directions, irrigating it of any residual stool. FINDINGS 1.No masses or polyps 2. Sigmoid-Diverticulosis mild 3. Anal skin tags The patient tolerated the procedure well. They will be discharged once criteria are met. The prep was of good/excellent quality. The withdrawl time was 6 minutes. Specimen(s): none sent Complications: none Impression: Normal colonoscopy Post-procedure Recommendations: Colonoscopy in 10 years and High fiber diet Disposition: same day surgery
[2022-03-29 10:55] VITALS: BP 104/78; PULSE 60; RESP 21; TEMP 37.2; O2SAT 97
[2022-03-29 10:58] VITALS: BP 107/74; PULSE 58; RESP 14; O2SAT 98
[2022-03-29 11:09] VITALS: BP 127/77; PULSE 60; RESP 17; TEMP 36.1; O2SAT 100
== END 2022-03-29 11:10 | disposition home or self-care (01) ==
PROVIDERS: PCP Family Medicine; Referring Provider Surgery; Visit Provider Surgery
PROC: 0DJD8ZZ Inspection of Lower Intestinal Tract, Via Natural or Artificial Opening Endoscopic (ICD-10-PCS; CPT 45378; principal; 2022-03-29 09:45)
DX: Z12.11 Encounter for screening for malignant neoplasm of colon (principal); Z86.010 Personal history of colon polyps; K57.30 Diverticulosis of large intestine without perforation or abscess without bleeding; K64.4 Residual hemorrhoidal skin tags
CPT/HCPCS: 45378; J2704

== ENCOUNTER → 2022-10-19 14:05 | Outpatient (CLI) | payer OTHER, SELFPAY ==
--- NOTE | 2022-10-19 14:07 | DI.RAD.S_ITS ---
PROCEDURE: XR KNEE LT 4V INDICATIONS: Left knee pain swelling suspect OA TECHNIQUE: 4 views of the knee were acquired. COMPARISON: None. FINDINGS: Bones: No acute fractures or dislocations. No suspicious bony lesions. Moderate joint space narrowing is seen at the medial femorotibial compartment, best seen on PA view with subchondral sclerosis and small marginal osteophytes. Small marginal osteophytes are also seen at the lateral and anterior compartments. Soft tissues: Small joint effusion. No suspicious soft tissue calcifications. 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 Approved by: Gerardo Gonzalez M.D. on 10/19/2022 at 21:09
--- NOTE | 2022-10-19 14:07 | DI.RAD.S_ITS ---
PROCEDURE: XR KNEE RT 4V INDICATIONS: R knee pain swelling suspect osteoarthrits TECHNIQUE: Four views of the knee were acquired. COMPARISON: None. FINDINGS: Bones: No acute fractures or dislocations. No suspicious bony lesions. Moderate joint space narrowing is seen at the medial femorotibial compartment. Small tricompartmental marginal osteophytes. Soft tissues: No joint effusion. No suspicious soft tissue calcifications. IMPRESSION: Tricompartmental osteoarthrosis, most notable and moderate at the medial femorotibial compartment. Approved by: Gerardo Gonzalez M.D. on 10/19/2022 at 21:08
== END ==
PROVIDERS: PCP Family Medicine; Referring Provider Physician Assistant; Visit Provider Physician Assistant
DX: M25.561 Pain in right knee (principal); M25.562 Pain in left knee; M17.0 Bilateral primary osteoarthritis of knee
CPT/HCPCS: 73564

== ENCOUNTER → 2023-05-01 08:42 | Outpatient (CLI) | payer OTHER, SELFPAY ==
[2023-05-01 09:37] LABS: Cholesterol 282 mg/dL (140-199); Glucose 97 mg/dL (80-110); HDL Cholesterol 72 mg/dL (40-60); LDL Cholesterol Calculated 178 mg/dL (<100); Triglycerides 162 mg/dL (35-150)
[2023-05-01 10:05] LABS: TSH w/ Reflex to FT4 1.53 uIU/mL (0.47-4.68)
== END ==
PROVIDERS: PCP Family Medicine; Referring Provider Family Medicine; Visit Provider Family Medicine
DX: E78.5 Hyperlipidemia, unspecified (principal); R73.9 Hyperglycemia, unspecified; E03.9 Hypothyroidism, unspecified
CPT/HCPCS: 36415; 80061; 82947; 84443

== ENCOUNTER → 2023-10-03 15:38 | Outpatient (CLI) | payer OTHER, SELFPAY ==
--- NOTE | 2023-10-03 15:38 | DI.MG.S_ITS ---
BILATERAL DIGITAL SCREENING MAMMOGRAM 3D/2D WITH CAD: 10/03/2023 CLINICAL: Routine screening. Comparison is made to exams dated: 01/28/2022 mammogram, 09/10/2020 mammogram, and 02/15/2018 mammogram - [facility]. Both breasts are heterogeneously dense, which may obscure small masses (category c / 51-75% glandular tissue). Current study was also evaluated with a Computer Aided Detection (CAD) system. There is a mole marker on the right breast. No significant masses, calcifications, or other findings are seen in either breast. There has been no significant interval change. IMPRESSION: NEGATIVE There is no mammographic evidence of malignancy. A 1 year screening mammogram is recommended. Based on the Tyrer Cuzick model (a risk assessment model) the patient's lifetime risk is 16.9% and her 10 year risk is 10.1%. According to the ACR, ACS, and NCCN guidelines, an annual breast MRI exam along with mammogram is recommended if the patient's lifetime risk is 20% or greater. This exam was interpreted at Station ID: [id number]. NOTE: For mammograms, a report in lay terms will be sent to the patient. Approximately 15% of breast malignancies will not be visualized mammographically. In the management of a palpable breast mass, a negative mammogram must not discourage biopsy of a clinically suspicious lesion. Electronically Signed By: Gerardo de paz/ayush:10/04/2023 11:18:23 letter sent: Normal Exam ACR BI-RADS Category 1: Negative [id number]
== END ==
LOC: MAMMO 15:38
PROVIDERS: PCP Family Medicine; Referring Provider Family Medicine; Visit Provider Family Medicine
DX: Z12.31 Encounter for screening mammogram for malignant neoplasm of breast (principal); R92.333 Mammographic heterogeneous density, bilateral breasts
CPT/HCPCS: 77063; 77067

== ENCOUNTER → 2023-10-05 14:52 | Outpatient (CLI) | payer OTHER, SELFPAY ==
[2023-10-05 15:47] LABS: Influenza A - CEPHEID Flu A NEGATIVE (NEGATIVE); Influenza B - CEPHEID Flu B NEGATIVE (NEGATIVE); Respiratory Syncytial Virus Negative (Negative)
[2023-10-05 15:52] LABS: COVID-19 CEPHEID 4-PLEX PCR Negative (Negative)
== END ==
PROVIDERS: PCP Family Medicine; Referring Provider Physician Assistant Surgical; Visit Provider Physician Assistant Surgical
DX: R09.81 Nasal congestion (principal); R51.9 Headache, unspecified
CPT/HCPCS: 0241U

== ENCOUNTER → 2023-12-13 07:46 | Outpatient (CLI) | payer OTHER, SELFPAY ==
[2023-12-13 09:25] LABS: Add Manual Diff / Slide Review NO; Basophils Absolute Auto 0 /uL (0-100); Basophils Percent Auto 0.6 % (0-2); Eosinophils Absolute Auto 200 /uL (0-450); Hematocrit 39.6 % (36-46); Hemoglobin 13.5 g/dL (12.0-16.0); Lymphocytes Absolute Auto 2000 /uL (1100-4500); Mean Corpuscular Hemoglobin 31.2 PG (26-34); Mean Corpuscular Volume 91.8 fL (80-100); Monocytes Absolute Auto 400 /uL (0-900); Monocytes Percent Auto 6.5 % (3-14); Neutrophils Absolute Auto 3500 /uL (1500-7000); Neutrophils Percent Auto 56.9 % (50-75); Platelet Count 275 X10^3/uL (150-400); Red Blood Cell Count 4.31 X10^6/uL (4.0-5.2); Red Cell Distribution Width 13.6 % (11.6-14.8); White Blood Cell Count 6.2 X10^3/uL (4.5-11.0)
[2023-12-13 10:22] LABS: Alanine Aminotransferase 22 IU/L (<35); Albumin 4.1 g/dL (3.5-5.0); Albumin Globulin Ratio 1.4 (1.0-2.8); Alkaline Phosphatase 46 U/L (38-126); Aspartate Aminotransferase 28 IU/L (14-36); BUN Creatinine Ratio 11.8 (6-22); Bilirubin Total 0.9 mg/dL (0.2-1.3); Blood Urea Nitrogen 10 mg/dL (7-17); Carbon Dioxide 28 mmol/L (22-32); Chloride 104 mmol/L (98-107); Cholesterol 279 mg/dL (140-199); Estimated Glomerular Filt Rate > 60 mL/min (>60); Glucose 96 mg/dL (80-110); HDL Cholesterol 77 mg/dL (40-60); HEMOLYSIS < 15 (0-50); LDL Cholesterol Calculated 151 mg/dL (<100); Potassium 5.2 mmol/L (3.4-5.1); Sodium 136 mmol/L (137-145); Total Protein 7.1 g/dL (6.3-8.2); Triglycerides 253 mg/dL (35-150)
[2023-12-13 10:41] LABS: TSH w/ Reflex to FT4 4.01 uIU/mL (0.47-4.68)
== END ==
PROVIDERS: PCP Family Medicine; Referring Provider Family Medicine; Visit Provider Family Medicine
DX: F32.9 Major depressive disorder, single episode, unspecified (principal); E03.9 Hypothyroidism, unspecified; E78.5 Hyperlipidemia, unspecified
CPT/HCPCS: 36415; 80053; 80061; 84443; 85025

== ENCOUNTER → 2024-01-10 07:45 | Outpatient (CLI) | payer OTHER, SELFPAY ==
[2024-01-10 09:34] LABS: BUN Creatinine Ratio 17.1 (6-22); Blood Urea Nitrogen 13 mg/dL (7-17); Calcium 9.9 mg/dL (8.4-10.2); Carbon Dioxide 26 mmol/L (22-32); Chloride 103 mmol/L (98-107); Estimated Glomerular Filt Rate > 60 mL/min (>60); Glucose 90 mg/dL (80-110); HEMOLYSIS < 15 (0-50); Potassium 4.5 mmol/L (3.4-5.1); Sodium 136 mmol/L (137-145)
== END ==
PROVIDERS: PCP Family Medicine; Referring Provider Family Medicine; Visit Provider Family Medicine
DX: E87.5 Hyperkalemia (principal); E03.9 Hypothyroidism, unspecified; E78.5 Hyperlipidemia, unspecified
CPT/HCPCS: 36415; 80048

== ENCOUNTER → 2024-10-15 11:11 | Outpatient (CLI) | payer MEDICARE, OTHER, SELFPAY ==
--- NOTE | 2024-10-15 11:16 | DI.RAD.S_ITS ---
PROCEDURE: XR KNEE LT 3V INDICATIONS: Pain TECHNIQUE: 3 views of the knee were acquired. COMPARISON: [facility], CR, XR KNEE LT 4V, 10/19/2022, 14:23. FINDINGS: Bones: There are no osseous abnormalities. Joints: Moderate patellofemoral and medial tibial femoral degeneration noted. Small effusion noted. Soft tissues: Normal IMPRESSION: Moderate degeneration. . Dictated by: Corby Pettit M.D. on 10/16/2024 at 10:26 Approved by: Corby Pettit M.D. on 10/16/2024 at 10:27
--- NOTE | 2024-10-15 11:16 | DI.RAD.S_ITS ---
PROCEDURE: XR KNEE RT 3V INDICATIONS: Pain TECHNIQUE: 3 views of the knee were acquired. COMPARISON: [facility], CR, XR KNEE LT 4V, 10/19/2022, 14:23. FINDINGS: Bones: There are no osseous abnormalities. Joints: Severe right patellofemoral and medial tibial femoral degeneration appreciated. small suprapatellar effusion noted. Soft tissues: Normal IMPRESSION: Degeneration Dictated by: Corby Pettit M.D. on 10/16/2024 at 10:27 Approved by: Corby Pettit M.D. on 10/16/2024 at 10:28
--- NOTE | 2024-10-15 11:16 | DI.RAD.S_ITS ---
PROCEDURE: XR ANKLE LT MIN 3V INDICATIONS: Pain TECHNIQUE: 3 views of the ankle were acquired. COMPARISON: None. FINDINGS: Bones: Minimal lateral malleolar deformity likely represents a minimally malunified old fracture. Minor spurring of the anterior tibial plafond and the adjacent anterior talar neck may predispose to anterior impingement on ankle dorsiflexion Tibiotalar and talocalcaneal joints: Mild degeneration ankle mortise noted Soft tissues: Minor calcification plantar tendon insertion on the calcaneus. Mild plantar soft tissue swelling IMPRESSION: Chronic findings Dictated by: Corby Pettit M.D. on 10/16/2024 at 10:24 Approved by: Corby Pettit M.D. on 10/16/2024 at 10:26
== END ==
LOC: RAD 11:15
PROVIDERS: PCP Family Medicine; Referring Provider Family Medicine; Visit Provider Family Medicine
DX: M17.0 Bilateral primary osteoarthritis of knee (principal); M25.462 Effusion, left knee; M25.461 Effusion, right knee; M19.072 Primary osteoarthritis, left ankle and foot; R52 Pain, unspecified
CPT/HCPCS: 73562; 73610

== ENCOUNTER → 2024-11-19 10:28 | Outpatient (CLI) | payer MEDICARE, OTHER, SELFPAY ==
[2024-11-19 11:07] LABS: Hemoglobin A1C% w Est Avg Glu 5.1 % (4.0-6.0)
[2024-11-19 11:16] LABS: Alanine Aminotransferase 30 IU/L (<35); Albumin 4.3 g/dL (3.5-5.0); Albumin Globulin Ratio 1.6 (1.0-2.8); Alkaline Phosphatase 44 U/L (38-126); Blood Urea Nitrogen 11 mg/dL (7-17); Calcium 9.7 mg/dL (8.4-10.2); Carbon Dioxide 23 mmol/L (22-32); Chloride 104 mmol/L (98-107); Cholesterol 241 mg/dL (140-199); Estimated Glomerular Filt Rate > 60 mL/min (>60); Globulin 2.7 g/dL (1.7-4.1); Glucose 97 mg/dL (70-99); HDL Cholesterol 74 mg/dL (40-60); HEMOLYSIS < 15 (0-50); Potassium 4.4 mmol/L (3.4-5.1); Sodium 137 mmol/L (137-145); Total Protein 7.0 g/dL (6.3-8.2); Triglycerides 153 mg/dL (35-150)
[2024-11-19 15:07] LABS: Hep C Virus Ab w/Reflex Quant NEGATIVE s/c (NEGATIVE)
== END ==
PROVIDERS: PCP Family Medicine; Referring Provider Family Medicine; Visit Provider Family Medicine
DX: E66.9 Obesity, unspecified (principal); Z13.9 Encounter for screening, unspecified
CPT/HCPCS: 36415; 80053; 80061; 83036; 86803